=== PATIENT | female | born 1970 | race Caucasian/White ===

== ENCOUNTER → 2020-09-18 | Outpatient (CLI) | payer BC, OTHER ==
[~2020-09-18] MED LIST: B COMPLEX1 EACH PO; IBUPROFEN200 M1 PO; IRBESARTAN-HCT1 EAC1 PO; MEROPENEM1 GM IV; METFORMIN HCL500 MG PO; ONE-DAILY MULT1 EAC1 PO; VASCEPA1 GM PO; VITAMIN C500 M1 PO
--- NOTE | 2020-09-18 14:54 | NUR ---
VASCULAR ACCESS CONSULTED FOR PICC LINE PER DR NEUMANN, HOME [facility]. DISCUSSED BENEFITS AND RISK OF PICC WITH PT, VERBALIZED UNDERSTANDING. JAZMÍN BASILIC WAS WIDELY PATENT WITH USG. 4FR SL POWER PICC TRIMMED TO 49CM INSERTED TO 1CM EXTERNAL. STAT CXR ORDERED.PT TOLERATED WELL.
[2020-09-18 15:43] VITALS: BP 134/79
[2020-09-18 16:00] VITALS: BP 134/79
--- NOTE | 2020-09-18 16:00 | NUR ---
HERE FOR PICC LINE PLACEMENT AND 1ST DOSE IV MEROPENEM. PICC LINE PLACED PER VAT NURSE AND PLACEMENT CONFIRMED WITH PORT CXR. TOLERATED MEROPENEM INFUSION WITHOUT INCIDENT, WATCHED FOR 20 MIN POST COMPLETION. [facility]I NURSE, BIANCA, HERE TO TEACH PT AND HER PARTNER, SACHIN, HOW TO DO HOME INFUSIONS. SUPPLIES HAVE BEEN DISPATCHED TO THE HOME. PT AND SACHIN VERBALIZE UNDERSTANDING OF THE PLAN TO BEGING Q8H INFUSIONS AND STOP THE ORAL ANTIBIOTIC. [facility] CONFIRMED THAT THEY WILL BE RESPONSIBLE FOR WEEKLY LABS AND PICC CARE. PT DISMISSED IN STABLE CONDITION POST. GABI# IS [phone].
== END ==
LOC: CV 13:37
PROVIDERS: ATTEND Specialist
DX: M86.9 Osteomyelitis, unspecified (principal); Z98.890 Other specified postprocedural states
CPT/HCPCS: 27000; 95000